=== PATIENT | female | born 1935 | race Caucasian/White ===

== ENCOUNTER 2017-09-24 06:56 | Emergency (ER) | payer OTHER ==
--- NOTE | 2017-09-24 06:58 | EDPHY ---
HPI/HX/ROS/PE/MDM Narrative: CHIEF COMPLAINT: Head laceration after mechanical fall HPI: The patient is an 82 y/o female with a history of congestive heart failure arriving via EMS from [facility] for a witnessed mechanical fall. This morning, she fell in the bathroom as witnessed by her . He denies any loss of consciousness or syncope. She does not remember the incident but this may be baseline. She takes an aspirin daily. REVIEW OF SYSTEMS: Aside from elements discussed in the HPI, a comprehensive 10-point review of systems was reviewed and is negative. PMH: Congestive heart failure, hypertension, hypothyroidism, hypercholesterolemia, multiple TIAs Previous medical records reviewed including 06/03/16 ED visit. SOCIAL HISTORY: Lives in [facility], daughter at bedside , PHYSICAL EXAM: General:Patient is alert, in no acute distress. ENT:Eyes are normal to inspection. ENT inspection normal. Head: 7 cm laceration to the occipital region. Neck: Normal inspection. Full range of motion. Respiratory:No respiratory distress. Breath sounds normal bilaterally. Cardiovascular: Regular rate and rhythm. Strong peripheral pulses. Normal cap refill. Abdomen:The abdomen is nontender to palpation. There are no peritoneal signs. There are normal bowel sounds. Back: Normal to inspection. No tenderness to palpation. Skin: Normal color. No rash. Warm and dry. Extremities: Normal appearance. Full range of motion. Tenderness present at base of right thumb. NV intact. Neuro: Oriented x3. Normal motor function. Normal sensory function. ED Course: Study: CT of the head and neck Indication: Fall Results: CT scan of the head and neck was obtained. The results of the study are : negative for acute findings The study was read by the radiologist, Dr. Batista. I viewed the images myself on the PACS system. Study: X-ray of the right thumb Indication: Pain after fall Results: X-ray of the right thumb was obtained. The results of the study are: right thumb fracture at the proximal phalanx The study was read by the radiologist, Dr. Dickens. I viewed the images myself on the PACS system. Procedure: Laceration repair. Verbal consent was obtained from the patient. The patient did not request plastics. The patient is aware that a scar will occur. The wound size laceration on the location was anesthetized using lidocaine with epinephrine. The wound was carefully irrigated following protocol. Next, the wound was prepped and draped in sterile fashion and explored to its base with a gloved finger. There were no deep structures involved. No tendon injury was identified. No vascular injury was identified. No foreign bodies were identified. The wound was repaired with running sutures of 3-0 Prolene. The wound repair was simple. The procedure was performed by myself. Tetanus and antibiotic status were addressed. The patient presents with a 7 cm head laceration to the occipital region after a mechanical fall. Plan for CT to rule out further injury. 8:46 AM- I repaired the laceration with a running suture of 3-0 Prolene. I discussed the results of her workup with her and her family. I feel she is safe to return home. They agree to this course of action. Plan for release with instructions to return in 1 week for stitches removal or any worsening of condition. 9:30 AM- The patient continues to have symptoms. Her right thumb is painful. Plan for X-ray. MDM: This is an elderly patient on ASA who presents after a mechanical fall. Her injuries includes scalp laceration and ND thumb-fracture. I see no evidence of arrhythmia or ACS. CTH and CTcsp are negative for fracture or intracranial bleed. She was observed in the ED for several hours and remained hemodynamically stable. Her daughter is comfortable with the plan for discharge home and close PCP follow-up. - Data Points Imaging Results: Imaging Impressions Cervical Spine CT 09/24/17 06:59 Impression: 1. No definite fracture. 2. Multilevel moderate to severe degenerative disk disease and facet arthropathy worst from C4-C5 through C7-T1 with C5-C6 degenerative grade 1 anterolisthesis resulting in mild central canal stenosis and mild to moderate bilateral neural foraminal stenosis, worst at C5-C6. 3. If there is persistent pain or neurological deficit, recommend MR cervical spine and consider flexion and extension views, if clinically indicated. Findings and recommendations discussed with Emergency Department physician, Tyler Rondon MD at 0800 hours, 09/24/2017. Final report concurs with initial preliminary interpretation. Head CT 09/24/17 06:59 Impression: 1. Moderate cerebral and cerebellar atrophy. 2. No acute hemorrhage, hydrocephalus, or mass effect. 3. Cerebrovascular atherosclerosis. 4. No definite acute infarct. 5. 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 6. Severe microvascular ischemic gliosis. 7. Left parietal scalp laceration without skull fracture or epidural/subdural hematoma. Findings and recommendations discussed with Emergency Department physician, Tyler Rondon MD at 0745 hours, 09/24/2017. Final report concurs with initial preliminary interpretation. Finger X-Ray 09/24/17 10:00 Impression: 1. Probable fracture at the base of the proximal phalanx of the right thumb. 2. Prominent degenerative changes as detailed above. Laboratory Results: Laboratory Results 09/24/17 10:11 09/24/17 10:11 09/24/17 09/24/17 09/24/17 10:11 10:11 10:11 WBC 10.42 10^3/uL H 10^3/uL (3.80-9.50) RBC 4.12 10^6/uL L 10^6/uL (4.18-5.33) Hgb 12.4 g/dL L g/dL (12.6-16.3) Hct 38.1 % % (38.0-47.0) MCV 92.5 fL fL (81.5-99.8) MCH 30.1 pg pg (27.9-34.1) MCHC 32.5 g/dL g/dL (32.4-36.7) RDW 14.9 % % (11.5-15.2) Plt Count 187 10^3/uL 10^3/uL (150-400) MPV 12.1 fL H fL (8.7-11.7) Neut % (Auto) 82.5 % H % (39.3-74.2) Lymph % (Auto) 11.3 % L % (15.0-45.0) Edmunds % (Auto) 4.4 % L % (4.5-13.0) Eos % (Auto) 1.0 % % (0.6-7.6) Baso % (Auto) 0.6 % % (0.3-1.7) Nucleat RBC Rel Count 0.0 % % (0.0-0.2) Absolute Neuts (auto) 8.60 10^3/uL H 10^3/uL (1.70-6.50) Absolute Lymphs (auto) 1.18 10^3/uL 10^3/uL (1.00-3.00) Absolute Monos (auto) 0.46 10^3/uL 10^3/uL (0.30-0.80) Absolute Eos (auto) 0.10 10^3/uL 10^3/uL (0.03-0.40) Absolute Basos (auto) 0.06 10^3/uL 10^3/uL (0.02-0.10) Absolute Nucleated RBC 0.00 10^3/uL 10^3/uL (0-0.01) Immature Gran % 0.2 % % (0.0-1.1) Immature Gran # 0.02 10^3/uL 10^3/uL (0.00-0.10) PT 12.7 SEC SEC (12.0-15.0) INR 0.93 (0.83-1.16) APTT 27.4 SEC SEC (23.0-38.0) Sodium 144 mEq/L mEq/L (135-145) Potassium 4.5 mEq/L mEq/L (3.5-5.2) Chloride 104 mEq/L mEq/L (97-110) Carbon Dioxide 25 mEq/l mEq/l (22-31) Anion Gap 15 mEq/L mEq/L (8-16) BUN 20 mg/dL mg/dL (7-23) Creatinine 0.8 mg/dL mg/dL (0.6-1.0) Estimated GFR > 60 Glucose 118 mg/dL H mg/dL (70-100) Calcium 9.8 mg/dL mg/dL (8.5-10.4) Troponin I 0.013 ng/mL ng/mL (0.000-0.034) General Initial Vital Signs: Initial Vital Signs Temperature (C) 36.4 C 09/24/17 06:59 Heart Rate 71 09/24/17 06:59 Respiratory Rate 18 09/24/17 06:59 Blood Pressure 168/86 H 09/24/17 06:59 O2 Sat (%) 97 09/24/17 06:59 O2 Delivery Mode Nasal Cannula O2 (L/minute) 2 Allergies/Adverse Reactions: homatropine Allergy (Verified 09/24/17 07:01) hydrocodone Allergy (Verified 09/24/17 07:01) lanolin Allergy (Verified 09/24/17 07:01) Home Medications: Medication Instructions Recorded Amoxicillin 500 mg PO TID 7 Days cap 06/03/16 Gabapentin 06/03/16 Lasix 06/03/16 Levothyroxine 06/03/16 Losartan Potassium 06/03/16 SIMVASTATIN 06/03/16 Departure - Departure Disposition: Home, Routine, Self-Care Clinical Impression: Laceration of head, Thumb fracture Condition: Good Instructions: Care For Your Stitches (ED), Laceration (ED) Additional Instructions: 1. Return to the emergency department in 1 week to have your stitches removed. 2. Follow-up with orthopedics, Dr. Olivera, in a week regarding your thumb fracture. 2. Return to the emergency department for any worsening of condition. Referrals: Brenda Ambrocio MD [[facility] Primary Care Provider] - As per Instructions Jamshid Olivera MD [Medical Doctor] - As per Instructions Report Scribed for: Tyler Rondon Report Scribed by: Izabela Olguin Date of Report: 09/24/17 Time of Report: 07:27 Physician Review and Approval Statement: Portions of this note were transcribed by an ED scribe. I personally performed the history, physical exam, and medical decision making; and confirm the accuracy of the information in the transcribed note.
--- NOTE | 2017-09-24 09:14 | CPEKG ---
Heart Rate: 67 RR Interval: 896 P-R Interval: 176 QRSD Interval: 90 QT Interval: 428 QTC Interval: 452 P Sawyer: 50 QRS Sawyer: -4 T Wave Sawyer: 94 EKG Severity - NORMAL ECG - EKG Impression: SINUS RHYTHM Electronically Signed By: Tyler Rondon 24-Sep-2017 13:34:40
[2017-09-24 10:02] VITALS: RESP 16
[2017-09-24 10:54] LABS: PLATELET COUNT 187 10^3/uL (150-400)
[2017-09-24 10:58] LABS: INR 0.93 (0.83-1.16); PROTIME(PATIENT) 12.7 SEC (12.0-15.0)
[2017-09-24 12:46] VITALS: BP 145/78; PULSE 75; TEMP 98.2; O2SAT 98
== END 2017-09-24 12:46 | disposition home or self-care (01) ==
LOC: EDUNIT#
PROC: 0HQ1XZZ Repair Face Skin, External Approach (ICD-10-PCS; principal; 2017-09-24)
DX: S01.81XA Laceration without foreign body of other part of head, initial encounter (principal); S62.501A Fracture of unspecified phalanx of right thumb, initial encounter for closed fracture; I11.0 Hypertensive heart disease with heart failure; I50.9 Heart failure, unspecified; W18.39XA Other fall on same level, initial encounter; Y92.009 Unspecified place in unspecified non-institutional (private) residence as the place of occurrence of the external cause
CPT/HCPCS: 12014; 70450; 72125; 73140; 93005; 99285; L3807

== ENCOUNTER → 2017-10-16 | Outpatient (CLI) | payer OTHER | LOC: FIMAGING 11:47 | PROVIDERS: ATTEND Internal Medicine Critical Care Medicine | DX: R14.0 Abdominal distension (gaseous) (principal); I51.7 Cardiomegaly ==